=== PATIENT | female | born 1975 | race Caucasian/White ===

== ENCOUNTER 2019-07-29 08:14 | Day surgery (SDC) | payer OTHER ==
[~2019-07-29 08:14] MED LIST: Sodium Chloride 0.9% 10 ML SDV IV PRN; Sodium Chloride 0.9% 10 ML Syringe FLUSH PRN; Sodium Chloride 0.9% 2.5 ML Syringe FLUSH PRN
[2019-07-29] MEDS ORDERED: Midazolam 1 MG/ML 2 ML SDV ONE (08:24)
[2019-07-29] MEDS ORDERED: Lidocaine 2% 5 ML SDV ONE (08:24)
[2019-07-29] MEDS ORDERED: fentaNYL 100 MCG/2 ML SDV ONE (08:24)
[2019-07-29] MEDS ORDERED: Propofol 200 MG/20 ML SDV ONE ×2 (08:24→09:39)
[2019-07-29] MEDS ORDERED: ceFAZolin/Dextrose,Iso-Osmotic 2 GM/50 ML Duplex Bag IV ONE (08:45)
--- NOTE | 2019-07-29 08:49 | PCM.PREANE ---
Preanesthetic Assessment - Anesthesia/Transfusion/Family Hx Anesthesia History: Prior Anesthesia Without Reaction Other Type of Anesthesia Reaction Comment: "my sons wake up angry" Transfusion History: No Prior Transfusion(s) - Review of Systems General: No Symptoms Pulmonary: No Symptoms Cardiovascular: No Symptoms Gastrointestinal: No Symptoms Neurological: No Symptoms Other: Reports: None - Physical Assessment NPO Status Date: 07/28/19 Height: 5 ft Weight: 83.461 kg ASA Class: 2 Mental Status: Alert & Oriented x3 Airway Class: Mallampati = 2 Dentition: Reports: Normal Dentition ROM/Head Extension: Full Lungs: Clear to Auscultation, Normal Respiratory Effort Cardiovascular: Regular Rate, Regular Rhythm - Allergies Allergies/Adverse Reactions: Allergies Allergy/AdvReac Type Severity Reaction Status Date / Time morphine Allergy "made me Verified 07/27/19 11:26 feel high" - Blood Blood Available: No - Anesthesia Plan Pre-Op Medication Ordered: None - Acknowledgements Anesthesia Type Planned: General Anesthesia Pt an Appropriate Candidate for the Planned Anesthesia: Yes Alternatives and Risks of Anesthesia Discussed w Pt/Guardian: Yes Pt/Guardian Understands and Agrees with Anesthesia Plan: Yes Additional Comments: PMH: htn, anxiety PLAN: ga/lma PreAnesthesia Questionnaire HEENT History: Reports: Other (See Below) Other HEENT History: wears glasses Cardiovascular History: Reports: Hypertension Respiratory History: Reports: None Gastrointestinal History: Reports: Other (See Below) Other Gastrointestinal History: occasional heartburn Genitourinary History: Reports: None 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: Musculoskeletal History: Reports: Fracture Other Musculoskeletal History: hx fx arm and pinky finger Neurological History: Reports: None Psychiatric History: Reports: Anxiety, Depression Endocrine/Metabolic History: Reports: Obesity/BMI 30+ Hematologic History: Reports: None Immunologic History: Reports: None Oncologic (Cancer) History: Reports: None Dermatologic History: Reports: None - Past Surgical History Head Surgeries/Procedures: Reports: None HEENT Surgical History: Reports: Oral Surgery Other HEENT Surgeries/Procedures: wisdom teeth extraction Cardiovascular Surgical History: Reports: None Respiratory Surgical History: Reports: None GI Surgical History: Reports: None Female Surgical History: Reports: Section Endocrine Surgical History: Reports: None Neurological Surgical History: Reports: None Musculoskeletal Surgical History: Reports: None Oncologic Surgical History: Reports: None Dermatological Surgical History: Reports: None - SUBSTANCE USE Smoking Status *Q: Light Tobacco Smoker Tobacco Use Within Last Twelve Months: Cigarettes - HOME MEDS Home Medications: Home Meds Desvenlafaxine Succinate [Desvenlafaxine Succinate ER] 50 mg PO BEDTIME [History] Lisinopril [Zestril] 10 mg PO BID 07/27/19 [History] Metoprolol Tartrate 12.5 mg PO BEDTIME 07/27/19 [History] - CURRENT (IN HOUSE) MEDS Current Meds: Current Medications Cefazolin Sodium/Dextrose 2 gm (/ Premix) 50 mls @ 100 mls/hr IV ONETIME ONE Stop: 07/29/19 10:14 Lactated Ringer's (Ringers, Lactated) 1,000 mls @ 125 mls/hr IV ASDIRECTED PAGE Sodium Chloride (Saline Flush) 10 ml FLUSH ASDIRECTED PRN PRN Reason: Keep Vein Open Sodium Chloride (Saline Flush) 2.5 ml FLUSH ASDIRECTED PRN PRN Reason: Keep Vein Open Sodium Chloride (Normal Saline) 10 ml IV ASDIRECTED PRN PRN Reason: IV Use
[2019-07-29] MEDS ORDERED: ceFAZolin 2 GM in Premix Bag 1 BAG IV ONE (09:45)
[2019-07-29] MEDS ORDERED: Lactated Ringers 1,000 ML IV SCH (09:45)
[2019-07-29] MEDS ORDERED: Octyl 2-Cyanoacrylate 1 Tube ONE (09:59)
[2019-07-29] MEDS ORDERED: Bupivacaine 0.5% 10 ML SDV ONE (09:59)
[2019-07-29] MEDS ORDERED: Lidocaine 1% 20 ML MDV ONE (09:59)
--- NOTE | 2019-07-29 10:48 | PCM.OPNOTE ---
<Ki Mane - Last Filed: 07/29/19 10:44> - General Post-Op/Procedure Note Date of Surgery/Procedure: 07/29/19 Operative Procedure(s): Excisional biopsy of nevus Findings: Nevus measuring 1 cm x 1 cm in size. Excisional margins are: 2 cm x 1.5 cm x 1 cm. Pre Op Diagnosis: Nevus Post-Op Diagnosis: Nevus Anesthesia Technique: [facility] [place] Primary Surgeon: Barbara Pascual Fluid Replacement, Intraop: 900 EBL in mLs: 5 Complications: None Condition: Stable <Barbara Pascual - Last Filed: 07/29/19 11:53> - General Post-Op/Procedure Note Free Text/Narrative:: Intake & Output 07/28/19 07/29/19 07/29/19 22:59 06:59 14:59 Intake Total 1800 Balance 1800
--- NOTE | 2019-07-29 12:27 | PCM.POSTAN ---
POST ANESTHESIA ASSESSMENT - MENTAL STATUS Mental Status: Alert, Oriented - VITAL SIGNS Vital Signs: Last Vital Signs Temp 99.1 F 07/29/19 10:46 Pulse 64 07/29/19 11:01 Resp 12 07/29/19 11:01 BP 113/66 07/29/19 11:01 Pulse Ox 98 07/29/19 11:01 - RESPIRATORY Respiratory Status: Respiratory Rate WNL, Airway Patent, O2 Saturation Stable - CARDIOVASCULAR CV Status: Pulse Rate WNL, Blood Pressure Stable - GASTROINTESTINAL GI Status: No Symptoms - POST OP HYDRATION Hydration Status: Adequate & Stable
--- NOTE | 2019-07-29 12:28 | PCM48HPAN ---
Post Anesthesia Note - EVALUATION WITHIN 48HRS OF ANESTHETIC Vital Signs in Normal Range: Yes Patient Participated in Evaluation: Yes Respiratory Function Stable: Yes Airway Patent: Yes Cardiovascular Function Stable: Yes Hydration Status Stable: Yes Pain Control Satisfactory: Yes Nausea and Vomiting Control Satisfactory: Yes Mental Status Recovered: Yes Vital Signs: Last Vital Signs Temp 99.1 F 07/29/19 10:46 Pulse 64 07/29/19 11:01 Resp 12 07/29/19 11:01 BP 113/66 07/29/19 11:01 Pulse Ox 98 07/29/19 11:01
--- NOTE | 2019-07-30 17:30 | OR ---
SURGEON: BARBARA PASCUAL MD DATE OF PROCEDURE: 07/29/2019 PREOPERATIVE DIAGNOSIS: Changing skin lesion. POSTOPERATIVE DIAGNOSIS: Changing skin lesion. PROCEDURE PERFORMED: Excision of left lower quadrant skin lesion. PRIMARY SURGEON: Barbara Pascual MD. ANESTHESIA: MAC, local. FLUIDS: 900 mL of crystalloid. ESTIMATED BLOOD LOSS: 5 mL. FINDINGS: 1 x 1 cm skin lesion. 2 x 1.5 x 1 cm excision margins. COMPLICATIONS: None. INDICATIONS: The patient is a 43-year-old female who presented with a changing skin lesion on her left lower quadrant. The lesion was located adjacent to a previous C- section scar and along the fold of her pannus. Given the difficult location of this lesion and the need for an excision that could potentially involve her previous scar tissue and needed complex repair, the decision was made to bring her to the operating room. The patient and I discussed the procedure; expected perioperative course; and risks including bleeding, infection, or damage to surrounding structures. She verbalized understanding and wishes to proceed. PROCEDURE IN DETAIL: The patient was brought into the OR, placed on the OR table in supine position. A time-out was completed verifying the patient's name, age, date of , allergies, and procedure to be performed. Monitored anesthesia care was induced. The lower abdomen was prepped and draped in usual standard fashion. I had my pastry assistant lift up the patient's pannus to expose the skin lesion. It was measured. It measured 1 x 1 cm in size. I anesthetized the area around the skin lesion using a 1:1 mixture of 0.5% Marcaine plain and 1% lidocaine plain. An elliptical incision was made around the skin lesion using a 15 blade. Cautery was then used to dissect down to the level of the subcutaneous fat along this incision. I then undermined the lesion taking a rim of subcutaneous fat underneath my ellipse of skin. The piece of tissue was then placed on the back field and measured. The entire specimen measured 2 x 1.5 x 1 cm in size. It was sent to pathology, labeled as left lower quadrant skin lesion. The patient had a small bleeding vein that was controlled with electrocautery. In order to provide a tension-free closure, subcutaneous flaps were created both inferiorly and superiorly to allow the tissue to come together. This was performed using electrocautery. I was then able to bring the skin down and approximate it without tension. To do this, I used interrupted 3-0 Vicryl sutures in the subcutaneous fat layer. I then closed the skin with a running 4-0 Monocryl stitch. Dermabond and a Tegaderm were applied. The patient tolerated the procedure well and was taken to the PACU in stable condition. All counts were complete and correct at the end of the case. MAURICE / SURESH /[id number]
== END 2019-07-29 11:55 | disposition home or self-care (01) ==
LOC: MW.SDS 08:14
PROVIDERS: ATTEND Surgery
DX: D22.5 Melanocytic nevi of trunk (principal); I10 Essential (primary) hypertension; F32.9 Major depressive disorder, single episode, unspecified; F41.9 Anxiety disorder, unspecified; E66.9 Obesity, unspecified; Z79.899 Other long term (current) drug therapy; Z88.5 Allergy status to narcotic agent; Z68.35 Body mass index [BMI] 35.0-35.9, adult
CPT/HCPCS: 11402; 12031; 81025; A9270; J0690; J2001; J2250; J2704; J3010; J3490; J7120; 00400; 88305